=== PATIENT | male | born 1990 | race Caucasian/White ===

== ENCOUNTER 2020-06-14 12:27 | Emergency (ER) | payer OTHER ==
[2020-06-14] MEDS ORDERED: LIDOCAINE 1% 10 ML VIAL INJ ONE (12:36)
[2020-06-14] MEDS ORDERED: CHLORHEXIDINE GLUCONATE 4 % 15 ML UD TOP ONE (12:36)
[2020-06-14] MEDS ORDERED: BACITRACIN 0.9 GM UD PCKT TOP ONE (12:38)
[2020-06-14] MEDS ORDERED: NEOMYCIN-BACITRACIN-POLYMYXIN 0.9 GM UD TOP ONE (12:47)
[2020-06-14 12:59] VITALS: BP 149/107; TEMP 97.7; O2SAT 96
[2020-06-14] MEDS ORDERED: HYDROcodone 10MG/APAP 325MG 1 EA TAB PO ONE (13:05)
--- NOTE | 2020-06-14 13:06 | ED.PDOC ---
History of Present Illness - General Chief Complaint: Laceration Stated Complaint: Pt cut the tip of R index finger off Time Seen by Provider: 06/14/20 12:31 Source: patient, RN notes reviewed, Vital Signs reviewed Exam Limitations: no limitations - History of Present Illness Initial Comments: Pt presents to ED for left index finger laceration. States he was chopping wood with a hatchet just [employer] and cut the tip of left index finger. Has had bleeding controlled by pressure. Pt is right handed. Last tetanus was 1 year ago. Allergies/Adverse Reactions: Allergies NO KNOWN ALLERGY Allergy (Verified 06/14/20 12:59) Home Medications: Ambulatory Orders Cetirizine HCl [ZyrTEC] 10 mg PO DAILY 06/14/20 Emtricitabine-Tenofovir Alafen [Descovy 200-25 mg] 1 tab PO DAILY 06/14/20 Fluoxetine HCl [Prozac] 20 mg PO DAILY 06/14/20 HYDROcodone 10MG/APAP 325MG [[place] 10/325] 1 ea PO ONCE PRN 3 Days #15 tab 06/14/20 Tramadol HCl 50 mg PO Q6H PRN 5 Days #20 tab 06/14/20 traMADol 37.5MG/APAP 325MG [Ultracet] 1 ea PO .Q4H PRN 4 Days #20 tab 06/14/20 Review of Systems - Review of Systems Constitutional: Denies: chills, fever Respiratory: Denies: cough, short of breath Cardiology: Denies: edema, palpitations, syncope Gastrointestinal/Abdominal: Denies: abdominal pain, diarrhea, vomiting Skin: States: see HPI All other Systems: Reviewed and Negative Past Medical History (General) - Patient Medical History Hx Stroke: No Hx of COPD: No Hx Cardiac Disorders: No Hx Congestive Heart Failure: No Hx Hypertension: No Hx Diabetes: No Hx Cancer: No - Vaccination History Hx Tetanus, Diphtheria Vaccination: Yes Hx Influenza Vaccination: Yes Hx Pneumococcal Vaccination: Yes - Social History Hx Tobacco Use: No Hx Alcohol Use: Yes Hx Substance Use: No Hx Substance Use Treatment: No Hx Depression: No - Female History Patient is a Female of Child Bearing Age (10 -59 yrs old): No Patient : No Family Medical History - Family History Mother Family History: No Known Living Status: Still Living Physical Exam - Physical Exam General Appearance: Alert, Comfortable, No apparent distress Neck: non-tender, full range of motion, supple Respiratory: chest non-tender, lungs clear, normal breath sounds, no respiratory distress Cardiovascular/Chest: regular rate, rhythm, no murmur Gastrointestinal/Abdominal: non tender, soft Neurologic: no motor/sensory deficits - Pt has skin avulsion of thumb side of distal left index finger. No visual bone. 1/4 of the nail is avulsed. no hanging tissue and appears to be a clean cut with no FB. 5/5 flexion and extension strength., alert Progress - Progress Progress: 06/14/20 13:08 Pt has avulsion laceration of tip of L 2nd digit with partial nail avulsion. no active bleeding. NVI. I placed digital block and used silver nitrate to cauterize. Nonadhesive dressing applied. Wound care instructions discussed. Will start prophylactic antibiotics and f/u with pcp in 1-2 days for recheck. srp given. Departure - Departure Clinical Impression: partial nail avulsion Fingertip avulsion Qualifiers: Encounter type: initial encounter Qualified Code(s): S61.209A - Unspecified open wound of unspecified finger without damage to nail, initial encounter Time of Disposition: 13:10 Disposition: Discharge to Home or Self Care Condition: Good Departure Forms: ED Discharge - Pt. Copy, Patient Portal Self Enrollment Instructions: DI for Laceration Repair, Nail Avulsion (DC) Diet: resume usual diet Prescriptions: HYDROcodone 10MG/APAP 325MG [[place] 10/325] 1 ea PO ONCE PRN 3 Days #15 tab PRN Reason: Pain Tramadol HCl 50 mg PO Q6H PRN 5 Days #20 tab PRN Reason: Pain traMADol 37.5MG/APAP 325MG [Ultracet] 1 ea PO .Q4H PRN 4 Days #20 tab PRN Reason: Pain Home Medications: Ambulatory Orders Cetirizine HCl [ZyrTEC] 10 mg PO DAILY 06/14/20 Emtricitabine-Tenofovir Alafen [Descovy 200-25 mg] 1 tab PO DAILY 06/14/20 Fluoxetine HCl [Prozac] 20 mg PO DAILY 06/14/20 HYDROcodone 10MG/APAP 325MG [[place] 10/325] 1 ea PO ONCE PRN 3 Days #15 tab 06/14/20 Tramadol HCl 50 mg PO Q6H PRN 5 Days #20 tab 06/14/20 traMADol 37.5MG/APAP 325MG [Ultracet] 1 ea PO .Q4H PRN 4 Days #20 tab 06/14/20 Comments: One RX for Tramadol printed. Unable to eprescribe and the other tramnadol and norco RX's were canceled. A prescription for Augmentin 875 mg BID x 10 days called to pharmacy.
--- NOTE | 2020-06-14 13:10 | RAD ---
EXAM DESCRIPTION: Hand,Left 3 Views CLINICAL HISTORY: 30 years Male, finger injury COMPARISON: None. FINDINGS: 3 views of the left hand show soft tissue injury distal left index finger without fracture. No radiopaque foreign body. IMPRESSION: Soft tissue injury distal left index finger without underlying fracture. Electronically signed by: Asif Ribera MD 06/14/2020 1:09 PM [facility]
== END 2020-06-14 13:27 | disposition home or self-care (01) ==
LOC: ER 12:27
DX: S61.311A Laceration without foreign body of left index finger with damage to nail, initial encounter (principal); W27.0XXA Contact with workbench tool, initial encounter; Y93.89 Activity, other specified; Y92.9 Unspecified place or not applicable